=== PATIENT | male | born 1940 | race Caucasian/White ===

== ENCOUNTER → 2019-08-28 | Outpatient (CLI) | payer MEDICARE ==
[~2019-08-28] MED LIST: ASPIRIN 32325 MG/TAB PO; BETAPACE 80MG80 MG PO; CEPHALEXIN500 M1 PO; COREG 3.123.125 MG/T PO; COZAAR 25MG25 MG/TAB PO; GLUCOPHAGE500 MG/TAB PO; MASON NATURAL1200 MG PO; PRIL40 PO; ZOCOR 80MG80 MG PO
== END ==
LOC: COL.RAD 08-24 14:45
DX: H90.42 Sensorineural hearing loss, unilateral, left ear, with unrestricted hearing on the contralateral side (principal); J32.0 Chronic maxillary sinusitis; J32.2 Chronic ethmoidal sinusitis; G31.9 Degenerative disease of nervous system, unspecified; I67.82 Cerebral ischemia; Z86.73 Personal history of transient ischemic attack (TIA), and cerebral infarction without residual deficits
CPT/HCPCS: A9585

== ENCOUNTER 2020-07-29 07:52 | Day surgery (SDC) | payer MEDICARE ==
[2020-07-29] VITALS (29 sets, daily range): BP systolic 122–128; BP diastolic 74–85; PULSE 60–62; O2SAT 97–100
[~2020-07-29] VITALS: Ht 190.5 cm; Wt 90.0 kg
[~2020-07-29 07:52] MED LIST changes: +ASPIRIN 81M81 MG/TA2 PO; +BETAPACE240 MG PO; +BETAPACEAF120 PO; +CLARITIN 1010 MG/TAB PO; +LIPITOR 40MG TA40 MG PO; +MAG-OX 400400 MG/TAB PO; +PACERONE200 MG PO; +PROTONIX 40MG T40 MG PO; +[UNRECOGNIZED DRUG - OTHER] PO
[2020-07-29] MEDS ORDERED: BETAPACE 80MG80 MG PO (09:19)
[2020-07-29] MEDS ORDERED: CORDARONE200 MG/TAB PO (09:19)
[2020-07-29 09:25] LABS: HEMOGLOBIN 12.2 g/dl (13.5-18.0); MEAN CELL VOLUME 93 fl (80.0-100.0); MEAN CORPUSCULAR HEMOGLOBIN 31 pg (27.0-31.0); MEAN CORPUSCULAR HGB CONC 34 g/dl (33.0-37.0); MEAN PLATELET VOLUME 9.5 fl (7.4-10.4); PLATELET COUNT 198 K/mm3 (130-400); RED BLOOD COUNT 3.88 M/mm3 (4.20-5.60); REDCELL DISTRIBUTION WIDTH-CV 13.4 % (11.5-14.5)
[2020-07-29 09:27] LABS: HEMATOCRIT 36.1 % (42.0-52.0)
[2020-07-29 09:34] LABS: CALCIUM 9.6 mg/dL (8.4-10.2); CREATININE, serum 0.72 (0.66-1.25); MAGNESIUM 1.6 mg/dL (1.6-2.3); POTASSIUM 4.5 mmol/L (3.4-5.0)
[2020-07-29 09:37] LABS: PROTHROMBIN TIME 11.1 SECONDS (9.7-12.8)
[2020-07-29 09:40] LABS: PARTIAL THROMBOPLASTIN TIME 32.4 SECONDS (26.0-37.0)
[2020-07-29 10:04] LABS: THYROID STIMULATING HORMONE 2.04 uIU/mL (0.465-4.680)
== END 2020-07-29 11:35 | disposition home or self-care (01) ==
LOC: COL.CAR 07:52
PROVIDERS: Internal Medicine Cardiovascular Disease
DX: I47.2 Ventricular tachycardia (principal); I48.0 Paroxysmal atrial fibrillation; I25.5 Ischemic cardiomyopathy; I25.2 Old myocardial infarction; I25.10 Atherosclerotic heart disease of native coronary artery without angina pectoris; I10 Essential (primary) hypertension; Z20.828 Contact with and (suspected) exposure to other viral communicable diseases; E78.2 Mixed hyperlipidemia; I08.0 Rheumatic disorders of both mitral and aortic valves; I48.91 Unspecified atrial fibrillation; E11.9 Type 2 diabetes mellitus without complications; Z95.810 Presence of automatic (implantable) cardiac defibrillator; Z79.899 Other long term (current) drug therapy; Z90.49 Acquired absence of other specified parts of digestive tract; Z79.82 Long term (current) use of aspirin; Z79.84 Long term (current) use of oral hypoglycemic drugs; K21.9 Gastro-esophageal reflux disease without esophagitis; Z87.891 Personal history of nicotine dependence; Z80.9 Family history of malignant neoplasm, unspecified
CPT/HCPCS: J2704; J7030

== ENCOUNTER → 2020-12-19 | Outpatient (CLI) | payer MEDICARE ==
[~2020-12-19] MED LIST changes: +CORDARONE200 MG/TAB PO
== END ==
LOC: COL.RAD
DX: E11.69 Type 2 diabetes mellitus with other specified complication (principal); G62.9 Polyneuropathy, unspecified; J32.9 Chronic sinusitis, unspecified

== ENCOUNTER → 2021-12-17 | Outpatient (CLI) | payer MEDICARE | LOC: COL.RAD 08:16 | DX: I25.9 Chronic ischemic heart disease, unspecified (principal); H90.42 Sensorineural hearing loss, unilateral, left ear, with unrestricted hearing on the contralateral side | CPT/HCPCS: A9575 ==

== ENCOUNTER 2022-02-05 07:05 | Day surgery (SDC) | payer MEDICARE ==
[2022-02-05] VITALS (106 sets, daily range): BP systolic 105–131; BP diastolic 60–81; PULSE 59–65; TEMP 98.3; O2SAT 92–100
[2022-02-05] MEDS ORDERED: JARDIANCE10 (07:41)
[2022-02-05] MEDS ORDERED: VITAMIN E 400 U4001 PO (07:44)
[2022-02-05] MEDS ORDERED: IRON TABLETS325 MG PO (07:46)
[2022-02-05 08:11] LABS: HEMOGLOBIN 12.2 g/dl (13.5-18.0); MEAN CELL VOLUME 95 fl (80.0-100.0); MEAN CORPUSCULAR HEMOGLOBIN 32 pg (27-31); MEAN CORPUSCULAR HGB CONC 34 g/dl (33.0-37.0); MEAN PLATELET VOLUME 9.4 fl (7.4-10.4); PLATELET COUNT 175 K/mm3 (130-400); REDCELL DISTRIBUTION WIDTH-CV 13.3 % (11.5-14.5)
[2022-02-05 08:19] LABS: INR 1.1 (0.8-3.0); PROTHROMBIN TIME 11.7 SECONDS (9.7-12.8)
[2022-02-05 08:27] LABS: CALCIUM 8.9 mg/dL (8.4-10.2); CREATININE, serum 0.71 mg/dL (0.72-1.25); POTASSIUM 4.1 mmol/L (3.5-4.5)
--- NOTE | 2022-02-05 09:33 | NUR ---
PATIENT ALERT AND ORIENTED, VERBALIZES UNDERSTANDING OF PROCEDURE. CONSENT VERIFIED. NO REPORTS OF CHEST PAIN. FAMILY AT BEDSIDE. SEE MERGE FOR HEMODYNAMIC MONITORING WELL MEDICATION ADMINISTRATION
[2022-02-05] MEDS ORDERED: COREG 3.123.125 MG/T PO (11:27)
[2022-02-05] MEDS ORDERED: ALDACTONE 25MG25 M1 PO (11:28)
--- NOTE | 2022-02-05 13:30 | NUR ---
All air released from band in 2-3 ml incriments.No bleeding observed at site.
--- NOTE | 2022-02-05 13:50 | NUR ---
Discharge instructions given to pt.Pt verbalizes understanding.INT removed,catheter tip intact.Dressing to right wrist observed clean,dry,intact and soft to touch.Pt escourted out via wheelchair by this nurse.
== END 2022-02-05 14:39 ==
LOC: COL.CAR 07:05
PROVIDERS: Internal Medicine Cardiovascular Disease
DX: I42.9 Cardiomyopathy, unspecified (principal)
CPT/HCPCS: J1644; J2250; J3010

== ENCOUNTER 2022-07-17 21:14 | Inpatient (IN) | payer MEDICARE ==
[~2022-07-17] VITALS: Ht 185.4 cm; Wt 80.0 kg
[~2022-07-17 21:14] MED LIST changes: +ALDACTONE 25MG25 M1 PO; +IRON TABLETS325 MG PO; +JARDIANCE10 PO; +VITAMIN E 400 U4001 PO
[2022-07-17] MEDS ORDERED: PROZAC 10MG10 MG PO (22:05)
[2022-07-17 22:19] VITALS: BP 153/75; PULSE 76; TEMP 97.4
[2022-07-17] MEDS ORDERED: GLUCOPHAGE XR500 M1 PO (22:29)
[2022-07-17 23:34] LABS: COLLECTION METHOD CLEAN CATCH; PH 6.5 (5.0-8.5); URINE APPEARANCE Hazy (CLEAR/HAZY); URINE COLOR Yellow (YELLOW); URINE GLUCOSE 2+ (NEGATIVE); URINE KETONE 3+ (NEGATIVE); URINE PROTEIN(semi-quant) 1+ (NEGATIVE)
[2022-07-17 23:35] LABS: URINE BLOOD 3+ (NEGATIVE); URINE NITRATE Negative (NEGATIVE)
[2022-07-17 23:40] LABS: MUCOUS Present (NOT PRESENT); SQUAMOUS EPITHELIAL None Seen /hpf (0-10); URINE BACTERIA None Seen /hpf (NONE SEEN); URINE RBC >50 /hpf (0-2)
[2022-07-18 03:38] VITALS: BP 100/58; PULSE 60; TEMP 98.1
[2022-07-18 06:22] LABS: BASO % 0.5 % (0.0-2.0); EOS # 0.1 K/mm3 (0.0-0.7); EOS % 1.6 % (0.0-4.0); GRAN % 77.6 % (42.2-75.2); HEMOGLOBIN 11.9 g/dl (13.5-18.0); LYMPH # 0.9 K/mm3 (1.2-3.4); LYMPH % 11.5 % (20.0-51.0); MEAN CELL VOLUME 95 fl (80.0-100.0); MEAN CORPUSCULAR HEMOGLOBIN 32 pg (27-31); MEAN CORPUSCULAR HGB CONC 34 g/dl (33.0-37.0); MONO # 0.6 K/mm3 (0.1-0.6); MONO % 8.3 % (1.7-9.3); PLATELET COUNT 168 K/mm3 (130-400); RED BLOOD COUNT 3.68 M/mm3 (4.20-5.60)
[2022-07-18 06:30] LABS: PROTHROMBIN TIME 11.8 SECONDS (9.7-12.8)
--- NOTE | 2022-07-18 06:33 | NUR ---
PATIENT RESTED QUIETLY UPON ARRIVAL TO HOSPITAL FROM [facility]. PATIENT RECEIVED PRN MORPHINE X1 AND SCHEDULED TYLENOL. PATIENT REPORTED PAIN TOLERABLE AND DENIED NEEDS.
[2022-07-18 06:47] LABS: ALBUMIN 3.4 gm/dL (3.4-4.8); BILIRUBIN,TOTAL 1.4 mg/dL (0.2-1.2); CREATININE, serum 0.66 mg/dL (0.72-1.25); POTASSIUM 4.4 mmol/L (3.5-4.5)
[2022-07-18 08:55] VITALS: BP 114/71; PULSE 63; TEMP 97.6
--- NOTE | 2022-07-18 09:35 | NUR ---
Patient resting in bed. Denies the need for pain medication. rounded. Scds placed Ble. Reyes to Rle. Ivf started per orders. Patient aware of no free water orders. He is Npo until, surgery scheduled. I did speak to patients daughter Iris this am. Will monitor patient.
--- NOTE | 2022-07-18 10:43 | NUR ---
Initial visit; Patient said he was doing ok and prays everyday so he's fine as far as needing prayer but was receptive to Ekg Technician keeping him in her prayers.
--- NOTE | 2022-07-18 10:51 | NUR ---
Patient aware of plan of care. Now Npo Wednesday night, No plans for Or until late Wednesday morning. Patient shown how to order food. He is provided with juice & gatorade. rounded. Device download completed & placed on the chart. Am morning medication given after saw him. His daughter now at bedside. Will monitor.
[2022-07-18 11:54] VITALS: BP 97/59; PULSE 80; TEMP 98.2
--- NOTE | 2022-07-18 15:02 | NUR ---
Patient resting. He did well with lunch. Will monitor.
--- NOTE | 2022-07-18 16:01 | NUR ---
HYUN met with "Jeremie" to complete intake. Patient reports to living at home alone in [place], [place]. Patient reports to being fully indpenedent with his ADL's and IADL's. He does not utilize any DME to assist with mobility and has no home oxygen needs. PCP is at [facility] and he utilizes [facility] for prescriptions with no cost difficulty. Patient does have a DPOA-HC established and a copy can be found in his EMR listing a Koki Bragg and Iris Boswell ([phone]). Patient is scheduled to have surgery on Wednesday. SW discussed need for rehab after surgery and discussed choices with him. Patient verbalizes that his first choice would be [facility] as it is close to home, and hi second choice is [facility] then [facility] in [place]. Clinical referral faxed to the above facilities. Discharge plan: SWBD vs SNF (referrals pending)
[2022-07-18 16:22] VITALS: BP 111/69; PULSE 108; TEMP 98.4
--- NOTE | 2022-07-18 18:58 | NUR ---
Patient resting in bed. Repositioned in bed. After movement pain elevated. He requested pain medication, one tab alana given. He did well with dinner. Fernandez with good urine output. Int. Reyes & scds. REport to fabiolaurse
[2022-07-18 20:02] VITALS: BP 102/57; PULSE 60; TEMP 97.6
[2022-07-18 23:32] VITALS: BP 125/72; PULSE 61; TEMP 97.6
[2022-07-19 03:20] VITALS: BP 145/82; PULSE 69; TEMP 97.8
--- NOTE | 2022-07-19 06:44 | NUR ---
PATIENT RESTED QUIETLY THIS SHIFT. PATIENT REPORTED PAIN CONTROLLED AND DECLINED OFFERED PRN PAIN MEDICATION. PATIENT DRANK ORANGE JUICE AND REQUIRED NO INSULIN.
[2022-07-19 07:30] VITALS: BP 142/81; PULSE 62; TEMP 98.5
--- NOTE | 2022-07-19 08:00 | NUR ---
PATIENT IS A&O WITH OCCATIONAL FORGETFULNESS NOTED. VSS ON TELE. REPORTS MOD PAIN IN LLE AND REQUESTING SOMETHING FOR PAIN. GAVE PRN OXYCODONE AND SCHEDULED TYLENOL WITH AM MEDS. NO C/O N/V. TOLERATING AHA DIET AND NO FREE WATER. HERNANDEZ TO DD WITH MOD AMOUNTS OF YELLOW URINE NOTED. LEFT AC IV TO INT. AM BS WAS 105. BREAKFAST TRAY ORDERED. HEAD TO TOE ASSESSMENT COMPLETE. SCD'S TO BLE. PLAN IS FOR SURGERY TOMORROW. NO OTHER NEEDS AT THIS TIME. CALL LIGHT IN REACH. BED ALARM ON.
[2022-07-19 08:09] LABS: BASO % 0.3 % (0.0-2.0); EOS # 0.1 K/mm3 (0.0-0.7); EOS % 1.6 % (0.0-4.0); GRAN # 6.4 K/mm3 (1.4-6.5); GRAN % 71.4 % (42.2-75.2); HEMATOCRIT 38.3 % (42.0-52.0); HEMOGLOBIN 13.2 g/dl (13.5-18.0); LYMPH # 1.3 K/mm3 (1.2-3.4); LYMPH % 14.1 % (20.0-51.0); MEAN CELL VOLUME 94 fl (80.0-100.0); MEAN CORPUSCULAR HEMOGLOBIN 32 pg (27-31); MEAN CORPUSCULAR HGB CONC 35 g/dl (33.0-37.0); MEAN PLATELET VOLUME 9.3 fl (7.4-10.4); MONO # 1.1 K/mm3 (0.1-0.6); MONO % 12.3 % (1.7-9.3); PLATELET COUNT 168 K/mm3 (130-400); RED BLOOD COUNT 4.07 M/mm3 (4.20-5.60); REDCELL DISTRIBUTION WIDTH-CV 13.9 % (11.5-14.5)
[2022-07-19 08:35] LABS: CALCIUM 9.7 mg/dL (8.4-10.2); CREATININE, serum 0.7 mg/dL (0.72-1.25); POTASSIUM 4.4 mmol/L (3.5-4.5)
[2022-07-19 11:19] VITALS: BP 104/51; PULSE 68; TEMP 98.3
[2022-07-19 15:41] VITALS: BP 103/60; PULSE 66; TEMP 98.5
[2022-07-19 20:01] VITALS: BP 116/65; PULSE 60; TEMP 98.2
[2022-07-19 23:55] VITALS: BP 147/79; PULSE 66; TEMP 98.1
[2022-07-20] VITALS (9 sets, daily range): BP systolic 90–136; BP diastolic 50–78; PULSE 60–70; TEMP 97.7–98.2
--- NOTE | 2022-07-20 06:28 | NUR ---
pt on bedrest, repositioned as wil, pain controlled with po pain meds, NPO since midnight, liriano patent/secure. INT to LAC. no SSI required.
[2022-07-20 06:37] LABS: BASO % 0.2 % (0.0-2.0); EOS # 0.1 K/mm3 (0.0-0.7); EOS % 1.2 % (0.0-4.0); GRAN % 69.8 % (42.2-75.2); HEMATOCRIT 37.5 % (42.0-52.0); HEMOGLOBIN 13.2 g/dl (13.5-18.0); LYMPH # 1.5 K/mm3 (1.2-3.4); LYMPH % 14.8 % (20.0-51.0); MEAN CELL VOLUME 93 fl (80.0-100.0); MEAN CORPUSCULAR HEMOGLOBIN 33 pg (27-31); MEAN CORPUSCULAR HGB CONC 35 g/dl (33.0-37.0); MEAN PLATELET VOLUME 10.2 fl (7.4-10.4); MONO # 1.3 K/mm3 (0.1-0.6); MONO % 13.4 % (1.7-9.3); PLATELET COUNT 180 K/mm3 (130-400); RED BLOOD COUNT 4.03 M/mm3 (4.20-5.60); REDCELL DISTRIBUTION WIDTH-CV 13.8 % (11.5-14.5)
[2022-07-20 06:49] LABS: CALCIUM 9.9 mg/dL (8.4-10.2); CREATININE, serum 0.74 mg/dL (0.72-1.25); POTASSIUM 4.3 mmol/L (3.5-4.5)
--- NOTE | 2022-07-20 08:30 | NUR ---
PATIENT IS A&O. VSS ON TELE. NO C/O PAIN OF N/V. ETL ANALYST GAVE PAIN PILL BEFORE SHIFT CHANGE. CALLED ANESTHESIA, GAVE AM MEDS WITH SIPS. NPO. AM BS WAS 103. IV FLUIDS INFUSING VIA GRAVITY INTO LEFT AC IV. CONSENT ON CHART. PRE-OP CHECK LIST ON CHART. HERNANDEZ TO ESTELLA, EMPTIED. HEAD TO TOE ASSESSMENT COMPLETE. DAUGHTER ON WAY TO HOSPITAL. PATIENT RESTING WITH CALL LIGHT IN REACH. BED ALARM ON.
--- NOTE | 2022-07-20 09:35 | NUR ---
CALLED REPORT TO REGISTERED NURSE HH CASE MANAGER.
--- NOTE | 2022-07-20 10:00 | NUR ---
PATIENT GOING DOWN TO SURGERY VIA BED. CONSENT ON CHART. IV FLUIDS INFUSING VIA GRAVITY. PATIENT OFF FLOOR.
--- NOTE | 2022-07-20 10:34 | NUR ---
[facility] swing bed called this worker and advised that they would not accept as patient's primary care provider, Dr Hunt, is in [place], [place]. Worker contacted Iris at the [facility] and she will confirm with Dr Hunt, however, feels that they will be able to accept patient to their swing bed. Will await confirmation.
--- NOTE | 2022-07-20 13:59 | NUR ---
animal care service worker met with patient's daughters: Mary #[phone] and Koki #[phone] and patient's girlfriend and provided the Medicare.gov share options for acute rehab and skilled rehab. Daughter's state that patient will want to transfer to the [facility] for swing bed with Dr Hunt. Worker confirmed with Iris at the [facility] that Dr Hunt will accept patient to skilled care. Mary states that she or her will transport patient in their vehicle. Worker provided transportation options and family felt that if patient was safe to transfer via car, they would provide that. [facility] via family.
--- NOTE | 2022-07-20 18:30 | NUR ---
PATIENT HAVING SOFT PRESSURES POST OP IN THE LOW 90'S SYSTOLIC AND 50'S DIASTOLIC WITH A HR OF 60. ORDERS TO HOLD EVENING COREG. PATIENT RESTING WITHOUT ANY NEEDS. NO C/O PAIN OR NAUSEA. FAMILY LEAVING FOR THE EVENING. ALL OTHER VSS. WILL MONITOR.
--- NOTE | 2022-07-21 01:21 | NUR ---
PT C/O uncontrolled pain in left hip @2355, oxy 5mg given rated pain /10. @0100 pt reporting pain still keeping him awake, 5/ 2nd 5mg oxy given.
[2022-07-21 03:47] VITALS: BP 113/59; PULSE 63; TEMP 98.1
[2022-07-21 06:48] LABS: BASO % 0.2 % (0.0-2.0); EOS # 0.1 K/mm3 (0.0-0.7); EOS % 1.2 % (0.0-4.0); GRAN # 6.1 K/mm3 (1.4-6.5); GRAN % 68.5 % (42.2-75.2); HEMOGLOBIN 12.3 g/dl (13.5-18.0); LYMPH # 1.2 K/mm3 (1.2-3.4); LYMPH % 13.2 % (20.0-51.0); MEAN CELL VOLUME 95 fl (80.0-100.0); MEAN CORPUSCULAR HEMOGLOBIN 32 pg (27-31); MEAN CORPUSCULAR HGB CONC 34 g/dl (33.0-37.0); MEAN PLATELET VOLUME 10.5 fl (7.4-10.4); MONO # 1.5 K/mm3 (0.1-0.6); MONO % 16.3 % (1.7-9.3); PLATELET COUNT 180 K/mm3 (130-400); RED BLOOD COUNT 3.81 M/mm3 (4.20-5.60); REDCELL DISTRIBUTION WIDTH-CV 13.9 % (11.5-14.5)
--- NOTE | 2022-07-21 06:52 | NUR ---
PT able to rest now after oxy given, liriano patent/secure, ice pack to lt hip, repositioned in bed as needed. sat up on edge of bed last evening. tolerating diet w/o N/V, accuchecks changed to ACHS
[2022-07-21 06:57] LABS: HEMATOCRIT 36.3 % (42.0-52.0)
[2022-07-21 07:01] LABS: CALCIUM 9.6 mg/dL (8.4-10.2); CREATININE, serum 0.7 mg/dL (0.72-1.25); POTASSIUM 4.3 mmol/L (3.5-4.5)
--- NOTE | 2022-07-21 07:09 | NUR ---
Received shift report from the oil well gun perforator operator nurse.
[2022-07-21 07:21] VITALS: BP 109/60; PULSE 65; TEMP 98.4
--- NOTE | 2022-07-21 08:10 | NUR ---
Shift assessment completed. Seems slightly confused, answering "Oh, I don't know" to every question. INT in left forearm CDI - telemetry on. Indwelling catheter intact, yellow urine output. Has been passing flatus, but has not had a BM since before admission. Aquacel dressing on left hip is CDI. Resting comfortably in chair, stated no needs/concerns at this time.
--- NOTE | 2022-07-21 09:34 | NUR ---
Patient alert and oriented . Left hip dresssing dry and intact. Pulses present in lower extremities. Tele monitor intact . Fernandez draining yellow urine in the bag. Patient denies pain at this time. INT on Left ac infiltrated. New INT started on right hand. Patient tolerated it well. Patient has low B/P of 109/60, the provider was notified and instructed to hold all blood pressure and cardiac meds. Patient informed and verbalized understanding. Will continue to monitor patient. Call jamison place within reach.
[2022-07-21 10:56] VITALS: BP 105/49; PULSE 60; TEMP 98.2
--- NOTE | 2022-07-21 11:59 | NUR ---
Provider ordered to hold coreg and cozaar. Patient notified and verbalized understanding. Amiodarone, aspirin administered per orders. Patient denies pain and needs at this time. Call jamison place within reach.
[2022-07-21 15:09] VITALS: BP 100/54; PULSE 65; TEMP 98
--- NOTE | 2022-07-21 15:34 | NUR ---
boom stick worker met with patient and his girlfriend this date and presented the IM form as patient may discharge tomorrow or . Worker spoke with Linda at the [facility], who confirms acceptance and confirmed discharge potential for tomorrow or to swing bed. Patient verbalizes agreement with this plan. Worker discussed that daughterMary will transport upon discharge. Worker left Mary a messaged and spoke with daughterKoki regarding the above discharge plan.
--- NOTE | 2022-07-21 16:50 | NUR ---
Patient awake alert and oriented. Dressing on left hip dry and intact. Tele in place and liriano catheter draining mikhail urine in the bag. Patient denies pain at this time. Call jamison place within reach. See process intervention for notes.
--- NOTE | 2022-07-21 18:13 | NUR ---
ALIRIO Crockett was notified of patient's low B/P of 100/54 and ordered to hold coreg. Medication held and not administered .
--- NOTE | 2022-07-21 18:56 | NUR ---
Patient in bed watching TV . Dressing on left thigh dry and intact. Ice pack applied to the area. Patient denies pain at the change of shift. Call jamison place within reach.
[2022-07-21 19:25] VITALS: BP 114/63; PULSE 72; TEMP 97.6
--- NOTE | 2022-07-21 21:15 | NUR ---
Patient alert and oriented x 3, hard of hearing, INT to RH, aquacel to L HIP CD & I, denies pain or discomfort at this time, with liriano catheter draining clear yellow urine, call light and personal items within reach, fall precautions in place.
[2022-07-21 23:21] VITALS: BP 124/70; PULSE 62; TEMP 97.9
[2022-07-22 03:57] VITALS: BP 109/60; PULSE 55; TEMP 97.8
[2022-07-22 06:45] LABS: BASO % 0.2 % (0.0-2.0); EOS # 0.1 K/mm3 (0.0-0.7); GRAN # 5.4 K/mm3 (1.4-6.5); GRAN % 65.3 % (42.2-75.2); LYMPH # 1.3 K/mm3 (1.2-3.4); MEAN CELL VOLUME 94 fl (80.0-100.0); MEAN CORPUSCULAR HEMOGLOBIN 32 pg (27-31); MEAN CORPUSCULAR HGB CONC 35 g/dl (33.0-37.0); MEAN PLATELET VOLUME 10.5 fl (7.4-10.4); MONO # 1.4 K/mm3 (0.1-0.6); MONO % 16.7 % (1.7-9.3); PLATELET COUNT 181 K/mm3 (130-400); REDCELL DISTRIBUTION WIDTH-CV 13.5 % (11.5-14.5)
[2022-07-22 06:54] LABS: HEMATOCRIT 34.6 % (42.0-52.0)
[2022-07-22 07:01] VITALS: BP 111/57; PULSE 61; TEMP 97.6
[2022-07-22 07:03] LABS: CALCIUM 9.7 mg/dL (8.4-10.2); CREATININE, serum 0.71 mg/dL (0.72-1.25); POTASSIUM 4.6 mmol/L (3.5-4.5)
--- NOTE | 2022-07-22 07:04 | NUR ---
bedside shift report received from BLAINE Singh
--- NOTE | 2022-07-22 08:11 | NUR ---
sitting up in bed eating breakfast, denies needs at this time
--- NOTE | 2022-07-22 08:20 | NUR ---
Shift assessment completed. INT in R hand CDI. Aquacell on L hip CDI. Indwelling catheter intact with peach colored output - minimal mucus present in tubing. States no pain/discomfort at this time. 100% of breakfast consumed. States no questions/concerns at this time.
[2022-07-22] MEDS ORDERED: ASPI325T6 PO (09:09)
[2022-07-22] MEDS ORDERED: ROXICODONE 55 MG/TAB PO (09:09)
[2022-07-22] MEDS ORDERED: TYLENOL 500MG500 MG PO (09:10)
--- NOTE | 2022-07-22 09:15 | NUR ---
Fernandez catheter discontinued. 175mL of output emptied from collection bag - peach colored urine. 8.2mL of sterile water pulled from the balloon. Pericare provided. Tolerated procedure well. Educated on use of hand-held urinal - patient stated he understood. Will continue to monitor I&O. States no needs/concerns at this time.
--- NOTE | 2022-07-22 09:30 | NUR ---
full assessment completed, see interventions for further info, student COMMERCIAL GREEN BUILDING DESIGNER has also assessed patient, liriano cath was removed by student, will call when needs to void, physical therapy in to work with patient, assisted out of bed and walks around bed and into chair
[2022-07-22 10:24] VITALS: BP 111/57; PULSE 61; TEMP 97.6
[2022-07-22 10:52] VITALS: BP 108/61; PULSE 67; TEMP 97.8
--- NOTE | 2022-07-22 10:54 | NUR ---
assisted up to bathroom by student PAGE MAKEUP SYSTEM OPERATOR, was able to have bowel movement but was unable to void at this time
--- NOTE | 2022-07-22 11:30 | NUR ---
in bed and appears to be sleeping, eyes closed, resp quiet and easy
--- NOTE | 2022-07-22 12:51 | NUR ---
Rachel with [facility] accepts patient to skilled care today. general foundry worker contacted patient's daughter, Mani and confirmed that she will transport patient today at 2:15. Worker faxed orders to [facility].
--- NOTE | 2022-07-22 12:52 | NUR ---
ahd lunch and tolerated well, now resting in bed
--- NOTE | 2022-07-22 13:41 | NUR ---
METAL WORKER in and assisting him with getting dressed
--- NOTE | 2022-07-22 14:33 | NUR ---
daughter here for transfer, assisted into and discharged per , report called to BLAINE Ramos at [facility]
== END 2022-07-22 14:34 | disposition swing bed (61) | DRG 522 ==
LOC: SURG 21:14
PROVIDERS: Nurse Practitioner Family; Orthopaedic Surgery; Physician Assistant; ADMIT Internal Medicine
PROC: 0SRB0JZ Replacement of Left Hip Joint with Synthetic Substitute, Open Approach (ICD-10-PCS; principal; 2022-07-20 10:00)
DX: S72.012A Unspecified intracapsular fracture of left femur, initial encounter for closed fracture (principal); I50.42 Chronic combined systolic (congestive) and diastolic (congestive) heart failure; E87.1 Hypo-osmolality and hyponatremia; I47.20 Ventricular tachycardia, unspecified; N39.0 Urinary tract infection, site not specified; E78.5 Hyperlipidemia, unspecified; I11.0 Hypertensive heart disease with heart failure; Z66 Do not resuscitate; I25.10 Atherosclerotic heart disease of native coronary artery without angina pectoris; E11.9 Type 2 diabetes mellitus without complications; J44.9 Chronic obstructive pulmonary disease, unspecified; M91.10 Juvenile osteochondrosis of head of femur [Legg-Calve-Perthes], unspecified leg; I08.0 Rheumatic disorders of both mitral and aortic valves; E87.8 Other disorders of electrolyte and fluid balance, not elsewhere classified; K22.70 Barrett's esophagus without dysplasia; D64.9 Anemia, unspecified; I48.91 Unspecified atrial fibrillation; M85.80 Other specified disorders of bone density and structure, unspecified site; I25.5 Ischemic cardiomyopathy; W18.39XA Other fall on same level, initial encounter; T50.2X5A Adverse effect of carbonic-anhydrase inhibitors, benzothiadiazides and other diuretics, initial encounter; F10.90 Alcohol use, unspecified, uncomplicated; Z79.84 Long term (current) use of oral hypoglycemic drugs; Z79.82 Long term (current) use of aspirin; Z95.0 Presence of cardiac pacemaker; Z87.891 Personal history of nicotine dependence; Y93.89 Activity, other specified; Y92.090 Kitchen in other non-institutional residence as the place of occurrence of the external cause
CPT/HCPCS: A9284; C1713; C1776; J0690; J0696; J2250; J2270; J2370; J2704; J3010; J7030; J7512

== ENCOUNTER → 2022-11-06 | Outpatient (CLI) | payer MEDICARE ==
[~2022-11-06] MED LIST changes: +ASPI325T6 PO; +GLUCOPHAGE XR500 M1 PO; +PROZAC 10MG10 MG PO; +ROXICODONE 55 MG/TAB PO; +TYLENOL 500MG500 MG PO
== END ==
LOC: COL.RAD 14:54
DX: J34.89 Other specified disorders of nose and nasal sinuses (principal); H73.892 Other specified disorders of tympanic membrane, left ear; H90.3 Sensorineural hearing loss, bilateral

== ENCOUNTER → 2022-12-04 | Outpatient (CLI) | payer MEDICARE | LOC: COL.RAD 10:16 | DX: H70.92 Unspecified mastoiditis, left ear (principal); G31.9 Degenerative disease of nervous system, unspecified; H90.3 Sensorineural hearing loss, bilateral; R90.82 White matter disease, unspecified | CPT/HCPCS: A9575 ==